=== PATIENT | male | born 1980 | race Caucasian/White ===

== ENCOUNTER 2016-09-13 23:14 | Observation (INO) | payer OTHER ==
[~2016-09-13] VITALS: Ht 172.7 cm; Wt 96.6 kg
[2016-09-13] MEDS ORDERED: SODIUM CHLORIDE 0.9% 1000ML 1,000 ML IV STA (23:23)
--- NOTE | 2016-09-13 23:35 | EMERGENCY ROOM VISIT NOTE ---
History Report prepared by Columba: Juan Emery Under the Supervision of: Dr. Remy Esparza M.D. 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 He was at the concert at [facility] this evening when he suddenly became generally weak. He tried to eat and drink some water, but that did not help. His weakness is lessened when he lies down. It worsens when he stands or sits up. He denies any chest pain. He has a past medical history of hypertension. He has a family history of heart disease and diabetes. This has never happened to the patient before. Per EMS, his blood sugar was 143. He denies any leg swelling and abdominal pain as well. He denies any history of blood clots. Source of History: patient Onset: CLINICAL OPERATIONS SPECIALIST Position: other (global) Symptom Intensity: moderate Quality: other (Weakness) Timing: waxes/wanes Modifying Factors (Worsening): other (Standing and sitting up) Modifying Factors (Relieving): rest Associated Symptoms: No chest pain, No abdominal pain Review of Systems See HPI for pertinent positives & negatives. A total of 10 systems reviewed and were otherwise negative. Past Medical & Surgical Medical Problems: (1) Chest pain (2) HTN (hypertension) (3) Near syncope Family History Diabetes mellitus FHx: heart disease Social History Smoking Status: Never Smoker Smokeless Tobacco Use: No Drug Use: none Marital Status: Housing Status: lives with family Occupation Status: employed Current/Historical Medications Scheduled Losartan Potassium (Cozaar), 50 MG PO DAILY Allergies Coded Allergies: No Known Allergies (Unverified , 09/14/16) Physical Exam Vital Signs Date Time Temp Pulse Resp B/P (MAP) Pulse Ox O2 Delivery O2 Flow Rate FiO2 09/14/16 00:44 66 15 98 09/14/16 00:31 136/84 09/14/16 00:29 66 17 99 09/14/16 00:14 57 12 98 09/14/16 00:01 121/70 09/13/16 23:59 59 26 98 09/13/16 23:44 59 18 97 09/13/16 23:36 121/84 09/13/16 23:32 36.4 64 18 121/84 97 Room Air Physical Exam GENERAL: Patient is anxious appearing and in minimal acute distress. HEENT: No acute trauma, normocephalic atraumatic, mucous membranes moist, no nasal congestion, no scleral icterus. NECK: No stridor, no adenopathy, no meningismus, trachea is midline. LUNGS: No dyspnea. Clear to auscultation and equal bilaterally. No wheeze, no rhonchi. HEART: Regular rate and rhythm. No murmurs, rubs, gallops appreciated. ABDOMEN: Soft, nontender, bowel sounds positive, no masses appreciated, no peritonitis. BACK: No midline tenderness, no CVA tenderness EXTREMITIES: Normal motion all extremities, no cyanosis, no edema. NEUROLOGIC: Alert and oriented, no acute motor or sensory deficits, no focal weakness, cranial nerves grossly intact. SKIN: No rash, no jaundice, no diaphoresis. Medical Decision & Procedures ER Provider Diagnostic Interpretation: Radiology results and stated below per my review and radiologist interpretation: SINGLE VIEW CHEST CLINICAL HISTORY: Atypical chest pain. FINDINGS: An AP, portable, upright chest radiograph is obtained. No prior studies are available for comparison at the time of dictation. The examination is degraded by portable technique and apical lordotic positioning. The cardiomediastinal silhouette is unremarkable. The lungs and pleural spaces are clear. No pneumothorax is seen. The bony thorax is grossly intact. IMPRESSION: No acute cardiopulmonary abnormality. Electronically signed by: Willie Gongora M.D. 09/14/2016 12:15 AM Dictated Date/Time: 09/14/2016 12:15 AM Laboratory Results 09/13/16 23:30 Red Blood Count 4.77, Mean Corpuscular Volume 89.5, Mean Corpuscular Hemoglobin 31.9, Mean Corpuscular Hemoglobin Concent 35.6, Mean Platelet Volume 9.2, Neutrophils (%) (Auto) 53.5, Lymphocytes (%) (Auto) 38.8, Monocytes (%) (Auto) 4.9, Eosinophils (%) (Auto) 2.0, Basophils (%) (Auto) 0.3, Neutrophils # (Auto) 3.91, Lymphocytes # (Auto) 2.84, Monocytes # (Auto) 0.36, Eosinophils # (Auto) 0.15, Basophils # (Auto) 0.02 09/13/16 23:30 Test 09/13/16 23:30 White Blood Count 7.32 K/uL (4.8-10.8) Red Blood Count 4.77 M/uL (4.7-6.1) Hemoglobin 15.2 g/dL (14.0-18.0) Hematocrit 42.7 % (42-52) Mean Corpuscular Volume 89.5 fL (80-100) Mean Corpuscular Hemoglobin 31.9 pg (25-34) Mean Corpuscular Hemoglobin Concent 35.6 g/dl (32-36) Platelet Count 222 K/uL (130-400) Mean Platelet Volume 9.2 fL (7.4-10.4) Neutrophils (%) (Auto) 53.5 % Lymphocytes (%) (Auto) 38.8 % Monocytes (%) (Auto) 4.9 % Eosinophils (%) (Auto) 2.0 % Basophils (%) (Auto) 0.3 % Neutrophils # (Auto) 3.91 K/uL (1.4-6.5) Lymphocytes # (Auto) 2.84 K/uL (1.2-3.4) Monocytes # (Auto) 0.36 K/uL (0.11-0.59) Eosinophils # (Auto) 0.15 K/uL (0-0.5) Basophils # (Auto) 0.02 K/uL (0-0.2) RDW Standard Deviation 40.7 fL (36.4-46.3) RDW Coefficient of Variation 12.5 % (11.5-14.5) Immature Granulocyte % (Auto) 0.5 % Immature Granulocyte # (Auto) 0.04 K/uL (0.00-0.02) Prothrombin Time 10.7 SECONDS (9.0-12.0) Prothromb Time International Ratio 1.0 (0.9-1.1) D-Dimer < 190 ug/L FEU (0-500) Anion Gap 9.0 mmol/L (3-11) Est Creatinine Clear Calc Drug Dose 87.8 ml/min Estimated GFR () 80.8 Estimated GFR (Non- 69.7 BUN/Creatinine Ratio 11.6 (10-20) Calcium Level 8.9 mg/dl (8.5-10.1) Total Creatine Kinase 96 U/L (39-308) Creatine Kinase MB 0.9 ng/ml (0.5-3.6) Creatine Kinase MB Ratio 0.9 (0-3.0) Laboratory results as reviewed by me. Medications Administered Medications (Trade) Dose Ordered Sig/Simona Route Start Time Stop Time Status Last Admin Dose Admin Sodium Chloride 1,000 ml @ 999 mls/hr Q1H1M STAT IV 09/13/16 23:23 09/14/16 00:23 DC 09/13/16 23:30 999 MLS/HR Ondansetron HCl (Zofran Inj) 4 mg NOW STAT IV 09/13/16 23:57 09/13/16 23:58 DC 09/14/16 00:01 4 MG Sodium Chloride 1,000 ml @ 150 mls/hr Q6H40M STAT IV 09/14/16 00:05 09/14/16 01:41 DC 09/14/16 00:18 150 MLS/HR ECG Indication: weakness Rate (beats per minute): 66 Rhythm: sinus tachycardia Findings: no acute ischemic change, no ectopy, other (Sinus Arrhythmia) Comparison ECG Date: Previous taken from EMS Change: Inferior ST-depressions have now resolved. Repeat ECG showed: NSR at 63. No ectopy or acute ischemia. Similar to previous. ED Course 2316: The patient was evaluated in room B3. A complete history and physical exam was performed. 2323: Ordered Sodium Chloride 1000 ml @ 999 mls/hr IV 2356: The patient is starting to get lightheaded and nauseated again. 2357: Ordered Zofran Inj 4 mg IV 0005: Ordered Sodium Chloride 1000 ml @ 150 mls/hr IV 0016: The patient feels better after the Zofran. 0017: Upon reevaluation, the patient is resting. Discussed results and treatment plan with the patient. He verbalized understanding and agreement with the treatment plan. The patient will be evaluated for further management by Dr. Piedad CODY. Medical Decision Differential: Vaso-vagal, ACS, Intracerebral Event, Neurologic, Infectious, Volume Deficiency, Hypoglycemia, Electrolyte Abnormality, Toxicologic, amongst other pathologies entertained. Medication Reconciliation: I attest that I have personally reviewed the patient 's current medication list. Blood pressure screening: Patient was found to have an elevated blood pressure and was referred to their primary doctor for recheck and further treatment. 35 yr old male arrives following near-syncopal event. Per pre-hospital severely ill appearing, diaphoretic. 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 Resolved with fluids and patient feeling much improved. Initial trop, labs unremarkable. Some mild return of symptoms resolved with fluids and zofran. No evidence STEMI on EKGs. Suspect hypovolemia leading to decreased coronary flow though will clearly need to come in for further work-up. Dimer negative and symptoms not consistent with dissection. Abdominal exam is benign and patient stable throughout ED stay. Consults Time Called: 14 Consulting Physician: Dr. Herbert - [facility] [place] Returned Call: 16 He will be evaluating the patient for further management and care. Impression Primary Impression: Acute electrocardiogram changes Additional Impressions: Near syncope Orthostatic hypotension Scribe Attestation The scribe's documentation has been prepared under my direction and personally reviewed by me in its entirety. I confirm that the note above accurately reflects all work, treatment, procedures, and medical decision making performed by me. Departure Information Dispostion Being Evaluated By Hospitalist Patient Instructions My [facility] Problem Qualifiers
[2016-09-13 23:39] LABS: BASO % 0.3 %; BASO ABS # 0.02 K/uL (0-0.2); COMPLETE YES; HEMATOCRIT 42.7 % (42-52); IG% 0.5 %; LYMPH % 38.8 %; LYMPH ABS # 2.84 K/uL (1.2-3.4); MEAN CELL VOLUME 89.5 fL (80-100); MEAN CORPUSCULAR HEMOGLOBIN 31.9 pg (25-34); MEAN CORPUSCULAR HGB CONC 35.6 g/dl (32-36); MEAN PLATELET VOLUME 9.2 fL (7.4-10.4); MONO % 4.9 %; NEUT % 53.5 %; PLATELET COUNT 222 K/uL (130-400); RED BLOOD COUNT 4.77 M/uL (4.7-6.1); WHITE BLOOD COUNT 7.32 K/uL (4.8-10.8)
[2016-09-13 23:52] LABS: PARTIAL THROMBOPLASTIN RATIO 0.9; PROTHROMBIN TIME (PATIENT) 10.7 SECONDS (9.0-12.0)
[2016-09-13 23:56] LABS: BLOOD UREA NITROGEN 15 mg/dl (7-18); BUN/CREATININE RATIO 11.6 (10-20); CALCIUM 8.9 mg/dl (8.5-10.1); CARBON DIOXIDE 26 mmol/L (21-32); CHLORIDE 107 mmol/L (98-107); GLUCOSE 131 mg/dl (70-99); POTASSIUM 3.8 mmol/L (3.5-5.1); SODIUM 142 mmol/L (136-145)
[2016-09-13] MEDS ORDERED: ONDANSETRON INJ 2 MG/ML 2 ML VIAL IV STA (23:57)
[2016-09-14 00:01] LABS: CKMB/CK RATIO 0.9 (0-3.0)
[2016-09-14] MEDS ORDERED: SODIUM CHLORIDE 0.9% 1000ML 1,000 ML IV STA (00:05)
--- NOTE | 2016-09-14 00:17 | DIAGNOSTIC IMAGING REPORT ---
SINGLE VIEW CHEST CLINICAL HISTORY: Atypical chest pain. FINDINGS: An AP, portable, upright chest radiograph is obtained. No prior studies are available for comparison at the time of dictation. The examination is degraded by portable technique and apical lordotic positioning. The cardiomediastinal silhouette is unremarkable. The lungs and pleural spaces are clear. No pneumothorax is seen. The bony thorax is grossly intact. IMPRESSION: No acute cardiopulmonary abnormality. Electronically signed by: Willie Gongora M.D. 09/14/2016 12:15 AM Dictated Date/Time: 09/14/2016 12:15 AM
[2016-09-14] MEDS ORDERED: LOSA50TA6 PO (00:49)
[2016-09-14] MEDS ORDERED: ALUMINUM/MAGNESIUM/SIMETH (MAALOX MAX) 30 ML UDC PO PRN (01:00)
[2016-09-14] MEDS ORDERED: MoRPHine SULFATE 2 MG/ML CARP IV PRN (01:00)
[2016-09-14] MEDS ORDERED: ACETAMINOPHEN 325 MG TAB PO PRN (01:00)
[2016-09-14] MEDS ORDERED: ONDANSETRON INJ 2 MG/ML 2 ML VIAL IV PRN (01:00)
[2016-09-14] MEDS ORDERED: MAGNESIUM HYDROXIDE SUSP 30 ML UDC PO PRN (01:00)
[2016-09-14] MEDS ORDERED: POLYETHYLENE (MIRALAX) 17 GM PACK PO PRN (01:00)
[2016-09-14] MEDS ORDERED: ZOLPIDEM TARTRATE 5 MG TAB PO PRN (01:00)
--- NOTE | 2016-09-14 01:26 | History and Physical ---
History & Physical Date & Time of Service: Sep 14, 2016 at 01:12 Chief Complaint: Weakness Primary Care Physician: Sudha Motley M.D. History of Present Illness Source: patient, spouse 35 y/o M Hx HTN, family history of premature CAD. Pt was at a [employer] music concert when he developed acute light-headedness, nausea and profuse diaphoresis. He nearly lost consciousness when he attempted to stand up. The pt was markedly orthostatic on arrival to the ER and an EKG revealed inferior T wave inversions. He was given a litre of fluids and his symptoms gradually resolved. A repeat EKG revealed normalization in the inferior leads. He denies any CP or SOB. He has not had similar symptoms previously. 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 Smoking Status: Never Smoker Smokeless Tobacco Use: No Drug Use: none Marital Status: Occupational Status: employed Multi-Drug Resistant Organisms History of MDRO: No Allergies Coded Allergies: No Known Allergies (Unverified , 09/14/16) Home Medications Scheduled Losartan Potassium (Cozaar), 50 MG PO DAILY Review of Systems Constitutional: + sweats, + weakness, No fever, No chills Eyes: No worsening of vision, No eye pain ENT: No hearing loss, No unusual epistaxis, No nasal symptoms Respiratory: No cough, No wheezing Cardiovascular: No chest pain, No PND Abdomen: + nausea, No pain, No vomiting Musculoskeletal: No joint pain Genitourinary - Male: No hematuria, No dysuria Neurologic: + weakness, + problem reported (Near-syncope as above), No memory loss, No paralysis Psychiatric: No depression symptoms Endocrine: No fatigue Hematologic / Lymphatic: No abnormal bleeding/bruising Integumentary: No rash Allergic / Immunologic: No environmental allergies Physical Exam Vital Signs Date Time Temp Pulse Resp B/P (MAP) Pulse Ox O2 Delivery O2 Flow Rate FiO2 09/13/16 23:32 36.4 64 18 121/84 97 Room Air General Appearance: WD/WN, no apparent distress Head: normocephalic Eyes: normal inspection, EOMI ENT: normal ENT inspection, hearing grossly normal, pharynx normal Neck: supple, thyroid normal, no JVD Respiratory/Chest: chest non-tender, lungs clear, no accessory muscle use Cardiovascular: regular rate, rhythm, no edema, no gallop, no JVD, no murmur, normal peripheral pulses Abdomen/GI: normal bowel sounds, non tender, soft Back: normal inspection, no CVA tenderness, no muscle spasm, normal range of motion Extremities/Musculoskelatal: normal inspection, no calf tenderness, normal capillary refill, no pedal edema, normal range of motion 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, no motor/sensory deficits, alert, normal mood/affect, normal reflexes, oriented x 3 Skin: normal color, warm/dry, no rash Diagnostics Laboratory Results Results Past 24 Hours Test 09/13/16 23:30 Range/Units White Blood Count 7.32 4.8-10.8 K/uL Red Blood Count 4.77 4.7-6.1 M/uL Hemoglobin 15.2 14.0-18.0 g/dL Hematocrit 42.7 42-52 % Mean Corpuscular Volume 89.5 80-100 fL Mean Corpuscular Hemoglobin 31.9 25-34 pg Mean Corpuscular Hemoglobin Concent 35.6 32-36 g/dl Platelet Count 222 130-400 K/uL Mean Platelet Volume 9.2 7.4-10.4 fL Neutrophils (%) (Auto) 53.5 % Lymphocytes (%) (Auto) 38.8 % Monocytes (%) (Auto) 4.9 % Eosinophils (%) (Auto) 2.0 % Basophils (%) (Auto) 0.3 % Neutrophils # (Auto) 3.91 1.4-6.5 K/uL Lymphocytes # (Auto) 2.84 1.2-3.4 K/uL Monocytes # (Auto) 0.36 0.11-0.59 K/uL Eosinophils # (Auto) 0.15 0-0.5 K/uL Basophils # (Auto) 0.02 0-0.2 K/uL RDW Standard Deviation 40.7 36.4-46.3 fL RDW Coefficient of Variation 12.5 11.5-14.5 % Immature Granulocyte % (Auto) 0.5 % Immature Granulocyte # (Auto) 0.04 0.00-0.02 K/uL Prothrombin Time 10.7 9.0-12.0 SECONDS Prothromb Time International Ratio 1.0 0.9-1.1 Activated Partial Thromboplast Time 22.4 21.0-31.0 SECONDS Partial Thromboplastin Ratio 0.9 D-Dimer < 190 0-500 ug/L FEU Sodium Level 142 136-145 mmol/L Potassium Level 3.8 3.5-5.1 mmol/L Chloride Level 107 98-107 mmol/L Carbon Dioxide Level 26 21-32 mmol/L Anion Gap 9.0 3-11 mmol/L Blood Urea Nitrogen 15 7-18 mg/dl Creatinine 1.30 0.60-1.40 mg/dl Est Creatinine Clear Calc Drug Dose 87.8 ml/min Estimated GFR () 80.8 Estimated GFR (Non- 69.7 BUN/Creatinine Ratio 11.6 10-20 Random Glucose 131 70-99 mg/dl Calcium Level 8.9 8.5-10.1 mg/dl Total Creatine Kinase 96 39-308 U/L Creatine Kinase MB 0.9 0.5-3.6 ng/ml Creatine Kinase MB Ratio 0.9 0-3.0 Troponin I < 0.015 0-0.045 ng/ml EKG Initial EKG with inferior ST changes Follow-up with flattening and resolution Impression Assessment and Plan 35 y/o M Hx HTN, family history of premature CAD. Pt was at a [employer] music concert when he developed acute light-headedness, nausea and profuse diaphoresis. He nearly lost consciousness when he attempted to stand up. The pt was markedly orthostatic on arrival to the ER and an EKG revealed inferior T wave inversions. He was given a litre of fluids and his symptoms gradually resolved. A repeat EKG revealed normalization in the inferior leads. He denies any CP or SOB. He has not had similar symptoms previously. 1) Near-syncope and diaphoresis with EKG changes - Considering the pts EKG changes and family history, we will treat this as a NSTEMI pending a second set of troponins. Cardiology will be consulted. The pt will be placed on a heparin drip, ASA and a Statin. CP will be treated with Morphine to avoid lowering his BP. He will continue to receive fluids overnight and will be kept NPO as he may require a catheterization. 2) HTN - will hold Lisinopril pending AM assessment. Level of Care Telemetry Resuscitation Status FULL RESUSCITATION VTE Prophylaxis VTE Risk Assessment Done? Y/N: Yes Risk Level: Very Low Given or contraindicated: Other Anticoagulation
[2016-09-14] MEDS ORDERED: HEPARIN 25000 UNIT/500 ML D5W ONE (01:27)
[2016-09-14] MEDS ORDERED: HEPARIN SOD (PORCINE) 1000 UNIT/ML 10 ML VIAL ONE (01:27)
[2016-09-14] MEDS ORDERED: HEPARIN 25,000 UNIT/500ML D5W 500 ML IV PRN (01:45)
[2016-09-14 02:30] VITALS: BP 155/100; PULSE 73; TEMP 36.5; O2SAT 98; Ht 172.7 cm; Wt 96.6 kg
[2016-09-14 02:40] LABS: PARTIAL THROMBOPLASTIN RATIO 3.7
[2016-09-14] MEDS ORDERED: IV FLUIDS COMPLETED PRN (05:30)
[2016-09-14 08:04] VITALS: BP 133/80; TEMP 36.7; O2SAT 97
--- NOTE | 2016-09-14 08:44 | Cardiology Consultation ---
Cardiology Consultation Date of Consultation: Sep 14, 2016. Requesting Physician: Piedad Attending Physician: Rossi Reason for Consultation: near syncope, diaphoresis History of Present Illness This very pleasant 35-year-old gentleman who was at the concert at [facility] yesterday. They had arrived early in the morning throughout the day he had 2 cans of beer and 2 bottles of water. He noted that late in the evening around 10 PM he started feeling mildly nauseous when he noted feeling coolness on the back of his neck. With his they moved away from the crowd at the concert. His symptoms persisted and then went to get a drink in some food. He then described feeling worsening nauseous and diffuse diaphoresis with associated tunnel vision and felt presyncopal. There was no loss of consciousness. He had no chest pain or chest pressure with the event. There is no associated shortness of breath. EMS was summoned. He was given IV fluids with improvement in his symptoms. he some paperwork on the way to the emergency room and sitting up to make him feel slightly dizzy. he also received zofran for his nausea which improved his symptoms. in the emergency room his symptoms had completely resolved. he notes in the days and weeks leading up to the concert he felt fine. no one has been sick at home. he exercises 45 minutes 3 days a week without any difficulty. he denies a decline in his exercise capacity over the last week or 2. he's had no angina or shortness of breath or lightheadedness, dizziness, or palpitations with activity in the last couple of weeks. This morning he feels well and back to himself. He has no anginal symptoms nor palpitations nor shortness of breath. He denies any fevers chills sweats. The nausea he had yesterday has resolved he denies any vomiting. His appetite and stable.. He is intentionally losing weight. The rest of Review of systems is negative Past Medical/Surgical History (1) HTN (hypertension) Family History Diabetes mellitus FHx: heart disease Social History Smoking Status: Never Smoker History of Alcohol Use: Yes (SOCAILLY) All Other Systems: Reviewed and Negative Allergies Coded Allergies: No Known Allergies (Unverified , 09/14/16) Medications Current Inpatient Medications Medications (Trade) Dose Ordered Sig/Simona Route Start Time Stop Time Status Last Admin Dose Admin Acetaminophen (Tylenol Tab) 650 mg Q4H PRN PO 09/14/16 01:00 10/14/16 00:59 Al Hydrox/Mg Hydrox/Simethicone (Maalox Max Susp) 15 ml Q4H PRN PO 09/14/16 01:00 10/14/16 00:59 Magnesium Hydroxide (Milk Of Magnesia Susp) 30 ml Q12H PRN PO 09/14/16 01:00 10/14/16 00:59 Zolpidem Tartrate (Ambien Tab) 5 mg HSZ PRN PO 09/14/16 01:00 10/14/16 00:59 Ondansetron HCl (Zofran Inj) 4 mg Q6H PRN IV 09/14/16 01:00 10/14/16 00:59 Morphine Sulfate (MoRPHine SULFATE INJ) 2 mg Q30M PRN IV 09/14/16 01:00 09/28/16 00:59 Aspirin (Ecotrin Tab) 325 mg QAM PO 09/14/16 09:00 10/14/16 08:59 09/14/16 07:40 325 MG Polyethylene (Miralax Powder Packet) 17 gm DAILY PRN PO 09/14/16 01:00 10/14/16 00:59 Atorvastatin Calcium (Lipitor Tab) 20 mg QAM PO 09/14/16 09:00 10/14/16 08:59 09/14/16 07:40 20 MG Miscellaneous (Iv Fluids Completed) 1 ea PRN PRN N/A 09/14/16 05:30 09/14/17 05:29 Physical Exam Vital Signs Past 12 Hours Date Time Temp Pulse Resp B/P (MAP) Pulse Ox O2 Delivery O2 Flow Rate FiO2 09/14/16 08:04 36.7 16 133/80 (97) 97 Room Air 09/14/16 08:00 Room Air 09/14/16 04:00 Room Air 09/14/16 02:30 36.5 73 18 155/100 98 Room Air 09/14/16 02:00 68 22 150/89 96 09/14/16 01:51 67 21 98 09/14/16 01:36 60 24 97 09/14/16 01:31 130/74 09/14/16 01:21 61 19 99 09/14/16 01:06 65 19 98 09/14/16 01:01 123/90 09/14/16 00:59 72 19 98 09/14/16 00:44 66 15 98 09/14/16 00:31 136/84 09/14/16 00:29 66 17 99 09/14/16 00:14 57 12 98 09/14/16 00:01 121/70 09/13/16 23:59 59 26 98 09/13/16 23:44 59 18 97 09/13/16 23:36 121/84 09/13/16 23:32 36.4 64 18 121/84 97 Room Air Constitutional: General Apperance: heathly-appearing, well-nourished, well-developed Level of Distress: NAD Psychiatric: Mental Status: active & alert, normal mood Lungs: Respiratory effort: no dyspnea Auscultation: breath sounds normal, no wheezing, no rales/crackles, no rhonchi Cardiovascular: Heart Auscultation: RRR, no murmurs, no rubs, no gallops Abdomen: Bowel Sounds: normal Inspection & Palpation: soft, non-distended, no tenderness, guarding & rebound Extremities: no edema [id number] Data Laboratory Results: Last 24 Hours Test 09/13/16 23:30 09/14/16 02:03 09/14/16 03:08 09/14/16 07:36 White Blood Count 7.32 K/uL Red Blood Count 4.77 M/uL Hemoglobin 15.2 g/dL Hematocrit 42.7 % Mean Corpuscular Volume 89.5 fL Mean Corpuscular Hemoglobin 31.9 pg Mean Corpuscular Hemoglobin Concent 35.6 g/dl Platelet Count 222 K/uL Mean Platelet Volume 9.2 fL Neutrophils (%) (Auto) 53.5 % Lymphocytes (%) (Auto) 38.8 % Monocytes (%) (Auto) 4.9 % Eosinophils (%) (Auto) 2.0 % Basophils (%) (Auto) 0.3 % Neutrophils # (Auto) 3.91 K/uL Lymphocytes # (Auto) 2.84 K/uL Monocytes # (Auto) 0.36 K/uL Eosinophils # (Auto) 0.15 K/uL Basophils # (Auto) 0.02 K/uL RDW Standard Deviation 40.7 fL RDW Coefficient of Variation 12.5 % Immature Granulocyte % (Auto) 0.5 % Immature Granulocyte # (Auto) 0.04 K/uL Prothrombin Time 10.7 SECONDS Prothromb Time International Ratio 1.0 Activated Partial Thromboplast Time 22.4 SECONDS 96.6 SECONDS 26.2 SECONDS Partial Thromboplastin Ratio 0.9 3.7 1.0 D-Dimer < 190 ug/L FEU Sodium Level 142 mmol/L Potassium Level 3.8 mmol/L Chloride Level 107 mmol/L Carbon Dioxide Level 26 mmol/L Anion Gap 9.0 mmol/L Blood Urea Nitrogen 15 mg/dl Creatinine 1.30 mg/dl Est Creatinine Clear Calc Drug Dose 87.8 ml/min Estimated GFR () 80.8 Estimated GFR (Non- 69.7 BUN/Creatinine Ratio 11.6 Random Glucose 131 mg/dl Calcium Level 8.9 mg/dl Total Creatine Kinase 96 U/L Creatine Kinase MB 0.9 ng/ml Creatine Kinase MB Ratio 0.9 Troponin I < 0.015 ng/ml < 0.015 ng/ml Test 09/14/16 08:22 Imaging: normal CXR EKG: NSR noormal ECG Sinus bradycardia with sinus arrhythmia Telemetry reviewed: Sinus arrhythmia with no ventricular or supraventricular ectopy Assessment & Plan Impressions: 1. Nausea and diaphoresis and lightheadedness 2. Mildly abnormal EKG with inferior T-wave inversions at the time of the event which have completely resolved 3. Hypertension 4. Family history of heart disease involving his paternal uncles in their 70s Hosea's first 2 troponins are negative and his EKG is normal this morning. I reviewed his telemetry which does not reveal any significant arrhythmias outside of sinus arrhythmia. I recommended a repeat troponin this morning which will be more than 6 hours from the event as well as an echocardiogram. If his troponin and echocardiogram are normal, then likely this event was vasovagal in nature related to some degree of dehydration and exposure to the sun all day. If his studies are normal, it would suggest that this is not related to plaque rupture. If this was related to obstructive coronary disease he should have had symptoms with activity and exercise over the last week or 2 and has not had any. I discussed with Hosea and his if he were noted any symptoms upon discharge including chest pain or chest pressure or shortness of breath were a decline in his exercise capacity and that would warrant further investigation with a stress echo.
[2016-09-14] MEDS ORDERED: ATORVASTATIN 20 MG TAB PO SCH (09:00)
[2016-09-14] MEDS ORDERED: ASPIRIN 325 MG ECTAB PO SCH (09:00)
[2016-09-14] MEDS ORDERED: PERFLUTREN LIPID MICROSPHERE (DEFINITY) IV ONE (09:19)
[2016-09-14 11:57] VITALS: BP 118/74; PULSE 61; TEMP 36.8; O2SAT 96
--- NOTE | 2016-09-14 13:01 | ECHOCARDIOGRAM REPORT ---
*NOTICE TO RECEIVING LIBERTARIAN AGENCY This information is strictly Confidential and protected under [place] law. [place] law prohibits you from making any further disclosure of this information unless further disclosure is expressly permitted by the written consent of the person to whom it pertains or is authorized by law. A general authorization for the release of medical or other information is not sufficient for this purpose. Hospital accepts no responsibility if the information is made available to any other person, INCLUDING THE PATIENT. Interpretation Summary * Name: KHUSHBU NAVAS Study Date: 09/14/2016 08:48 AM BP: 155/100 mmHg * Patient Location: C.2T\S\S232\S\1 HR: 74 * : 1980 (M/d/yyyy) Gender: Male Height: 68 in * Age: 35 yrs Ethnicity: [place] Weight: 212 lb * Ordering Physician: Marshall Richey * Referring Physician: Self, Referred * Performed By: Thierry Knight RDCS * * Reason For Study: Chedst pain * BSA: 2.1 m2 * Normal biventricular systolic function. * Normal left ventricular wall motion. * Borderline left atrial dilatation. * No significant valvular abnormalities. Procedure Details * A complete two-dimensional transthoracic echocardiogram was performed (2D, M-mode, Doppler and color flow Doppler). * The study was technically difficult, but visualization was adequate with the administration of Definity ultrasound contrast. * A contrast injection of Definity was performed to improve assessment of LV function. * Contrast was injected into an intravenous site in the right arm. * One vial of Definity ultrasound contrast was diluted in normal saline to a total volume of 10 ml. A total of '3' ml of solution was administered during imaging. * Lot # [id number] of Definity utilized for procedure. * Expiration date [id number]. * The attending nurse who injected the contrast agent was DAWNA Sung. Left Ventricle * The left ventricle is normal in size. * There is normal left ventricular wall thickness. * Left ventricular systolic function is normal. * Ejection Fraction = 60-65%. * The left ventricular wall motion is normal. Right Ventricle * The right ventricle is normal in size and function. * The right ventricular systolic function is normal as assessed by tricuspid annular plane systolic excursion (TAPSE) (normal >1.5 cm). Atria * Borderline left atrial enlargement. * Right atrial size is normal. * No ASD detected; PFO is not assessed. Mitral Valve * The mitral valve is normal. * There is no mitral valve stenosis. * There is trace mitral regurgitation. Tricuspid Valve * The tricuspid valve is normal. * There is no tricuspid stenosis. * There is trace tricuspid regurgitation. Aortic Valve * The aortic valve is trileaflet. * The aortic valve opens well. * Aortic stenosis is absent. * No aortic regurgitation is present. Pulmonic Valve * The pulmonic valve is not well seen, but is grossly normal. * There is no pulmonic valvular stenosis. * There is no pulmonic valvular regurgitation. Great Vessels * The aortic root is normal size. Pericardium/Pleural * There is no pericardial effusion. Great Vessels * Normal inferior vena cava diameter and respiratory variation suggests normal central venous pressure. MMode 2D Measurements and Calculations IVSd 0.85 cm IVSs 1.4 cm LVIDd 5.2 cm LVIDs 3.5 cm LVPWd 0.91 cm LVPWs 1.3 cm IVS/LVPW 0.93 FS 33.0 % EDV(Teich) 130.2 ml ESV(Teich) 50.7 ml EF(Teich) 61.1 % EDV(cubed) 141.6 ml ESV(cubed) 42.7 ml EF(cubed) 69.9 % % IVS thick 62.7 % % LVPW thick 42.7 % LV mass(C)d 165.3 grams LV mass(C)dI 78.9 grams/m\S\2 LV mass(C)s 161.7 grams LV mass(C)sI 77.2 grams/m\S\2 SV(Teich) 79.6 ml SI(Teich) 38.0 ml/m\S\2 SV(cubed) 99.0 ml SI(cubed) 47.2 ml/m\S\2 EPSS 0.65 cm Ao root diam 3.0 cm Ao root area 7.1 cm\S\2 ACS 2.0 cm LA dimension 4.0 cm asc Aorta Diam 3.1 cm LA/Ao 1.3 LVAd ap4 38.2 cm\S\2 LVLd ap4 9.0 cm EDV(MOD-sp4) 131.0 ml LVAs ap4 20.4 cm\S\2 LVLs ap4 7.1 cm ESV(MOD-sp4) 47.2 ml EF(MOD-sp4) 64.0 % LVAd ap2 35.5 cm\S\2 LVLd ap2 9.0 cm EDV(MOD-sp2) 113.0 ml LVAs ap2 19.0 cm\S\2 LVLs ap2 7.2 cm ESV(MOD-sp2) 40.8 ml EF(MOD-sp2) 63.9 % SV(MOD-sp4) 83.8 ml SI(MOD-sp4) 40.0 ml/m\S\2 SV(MOD-sp2) 72.2 ml SI(MOD-sp2) 34.5 ml/m\S\2 Doppler Measurements and Calculations MV E max quinton 90.2 cm/sec MV A max quinton 63.5 cm/sec MV E/A 1.4 MV dec time 0.15 sec Ao V2 max 150.3 cm/sec Ao max PG 9.0 mmHg Ao max PG (full) 4.1 mmHg LV V1 max PG 4.9 mmHg LV V1 max 110.9 cm/sec PA V2 max 111.2 cm/sec PA max PG 4.9 mmHg
--- NOTE | 2016-09-14 13:28 | Discharge Instructions ---
Discharge Instructions Date of Service Sep 14, 2016. Admission Reason for Admission: Chest Pain,Near Syncope Discharge Discharge Diagnosis / Problem: Vasovagal reaction Discharge Goals Goal(s): Decrease discomfort, Improve function, Increase independence Activity Recommendations Activity Limitations: resume your previous activity . Instructions / Follow-Up Instructions / Follow-Up Dr. Motley in 1 week Current Hospital Diet Patient's current hospital diet: Regular Diet Discharge Diet Recommended Diet: AHA Diet (Heart Healthy) Pending Studies Studies pending at discharge: no Medical Emergencies . Who to Call and When: Medical Emergencies: If at any time you feel your situation is an emergency, please call 911 immediately. . Non-Emergent Contact Non-Emergency issues call your: Primary Care Provider . . "Provider Documentation" section prepared by Iveth Gonzalez. . VTE Core Measure Inpt VTE Proph given/why not?: Other Anticoagulation
[2016-09-14 13:31] VITALS: BP 118/74; PULSE 61; TEMP 36.8; O2SAT 96
--- NOTE | 2016-09-14 13:34 | Discharge Summary ---
Discharge Summary Date of Service Sep 14, 2016. Discharge Summary Admission Date: Sep 14, 2016 at 00:57 Discharge Date: Sep 14, 2016 Discharge Disposition: Home Principal Diagnosis: Vasovagal reaction Problems/Secondary Diagnoses: HTN Procedures: ECHO 09/14 Consultations: Cardiology (Dr. Richey) Medication Reconciliation Continued Medications: Losartan Potassium (Cozaar) 50 Mg Tab 50 MG PO DAILY, TAB Discharge Exam Pt is doing well. He has had no recurrence of event. No monitor events. Has been tolerating PO without issue. Pt denies fever, SOB, chest pain, abd pain, n /v/c/d, LE pain or swelling. ROS reviewed and otherwise neg. Physical Exam: General Appearance: WD/WN, no apparent distress Eyes: normal inspection ENT: hearing grossly normal Neck: supple Respiratory/Chest: normal breath sounds, no respiratory distress Cardiovascular: regular rate, rhythm, no edema Abdomen / GI: non tender, soft Extremities: no calf tenderness, no pedal edema Neurologic/Psychiatric: alert, normal mood/affect, oriented x 3 Skin: normal color, warm/dry Hospital Course Per H&P: 35 y/o M Hx HTN, family history of premature CAD. Pt was at a [employer] concert when he developed acute light-headedness, nausea and profuse diaphoresis. He nearly lost consciousness when he attempted to stand up. The pt was markedly orthostatic on arrival to the ER and an EKG revealed inferior T wave inversions. He was given a litre of fluids and his symptoms gradually resolved. A repeat EKG revealed normalization in the inferior leads. He denies any CP or SOB. He has not had similar symptoms previously. Pt states he has been able to undergo his usual job requirements and works out without any issues. Other than this event, Thursday and the days preceding were normal days for himself. 1) Near-syncope and diaphoresis with EKG changes - Considering the pts EKG changes and family history, pt was started on a heparin drip, aspirin, and statin on admission. Trops neg x3 and ECHO with EF 60-65% and no structural abnormalities noted Pt has had no changes on the tele monitor other than sinus arrhythmia Ddimer and CXR were neg Pt's BS per EMS on arrival was 143 and has been stable during admission Cardiology has seen pt and feels this was likely a vasovagal event precipitated by mild dehydration and exertion If pt develops issues with exertion or further episodes, he will likely need a stress ECHO 2) HTN - resume home medication Total Time Spent: Greater than 30 minutes This includes examination of the patient, discharge planning, medication reconciliation, and communication with other providers. Discharge Instructions Please refer to the electronic Patient Visit Report (Discharge Instructions) for additional information. Follow-Up Dr. Motley in 1 week Additional Copies To Sudha Motley M.D.
== END 2016-09-14 13:47 | disposition home or self-care (01) ==
LOC: EDBD 23:14 → C.EDA 23:16 → C.2T 09-14 00:57 → ENRESERV 09-14 01:34
PROVIDERS: ADMIT Internal Medicine; ATTEND Family Medicine
DX: R55 Syncope and collapse (principal); R07.89 Other chest pain; R94.31 Abnormal electrocardiogram [ECG] [EKG]; I10 Essential (primary) hypertension; Z82.49 Family history of ischemic heart disease and other diseases of the circulatory system; Z83.3 Family history of diabetes mellitus